=== PATIENT | male | born 1975 | race Caucasian/White ===

== ENCOUNTER 2017-09-16 18:10 | Emergency (ER) | payer OTHER ==
[2017-09-16 18:16] VITALS: TEMP 97.9
--- NOTE | 2017-09-16 18:29 | CPEKG ---
Heart Rate: 68 RR Interval: 882 P-R Interval: 132 QRSD Interval: 92 QT Interval: 412 QTC Interval: 439 P [place]: 45 QRS [place]: 66 T Wave [place]: 38 EKG Severity - NORMAL ECG - EKG Impression: SINUS RHYTHM Electronically Signed By: Farzaneh Bynum 16-Sep-2017 20:21:42
[2017-09-16] MEDS ORDERED: LIDOCAINE 2% VISCOUS 15 ML UDCUP PO ONE (18:31)
[2017-09-16] MEDS ORDERED: HYOSCYAMINE SULFATE 0.125 MG TAB PO ONE (18:31)
[2017-09-16] MEDS ORDERED: MAG HYDROX/AL HYDROX/SIMETH 30 ML UDCUP PO ONE (18:31)
--- NOTE | 2017-09-16 18:31 | EDPHY ---
H & P Time Seen by Provider: 09/16/17 18:23 HPI/ROS: CHIEF COMPLAINT: Chest pain HISTORY OF PRESENT ILLNESS: The patient is a 41 y/o male with a two week history of intermittent chest pressure. The chest pain is intermittent, usually mild/moderate and resolves with exertion. The pain occurs randomly, not necessarily associated with eating. Usually the pain dissipates after 20 minutes, but it currently has lasted 2 hours. The pain today is rated 1-2/10. Also having GI cramping recently; has schedule an appointment with GI. Increased stress recently secondary to from his . He is a smoker. He denies history of hypertension, hypercholesterolemia, diabetes, or FH of early CAD. REVIEW OF SYSTEMS: Constitutional: No fever, no chills Eyes: No visual changes ENT: No sore throat Respiratory: No cough, no shortness of breath Gastrointestinal: No nausea, no vomiting Genitourinary: No hematuria, no dysuria Musculoskeletal: No leg pain or swelling Skin: No rash Neurological: No headache, no numbness, no weakness Psychiatric: anxiety Past Medical/Surgical History: Lower GI issues Social History: Employed, lives in [place], smoker Smoking Status: Current every day smoker Physical Exam: General Appearance: Alert, pleasant Eyes: Pupils equal and round, no conjunctival pallor or injection ENT, Mouth: Mucous membranes moist Neck: Normal inspection Respiratory: Lungs are clear to auscultation Cardiovascular: Regular rate and rhythm Gastrointestinal: Abdomen is soft, mild epigastric tenderness Neurological: A&O, nonfocal, normal gait Skin: Warm and dry, no rash Extremities: Nontender, no pedal edema Psychiatric: Mood and affect normal Constitutional: Initial Vital Signs Temperature (C) 36.6 C 09/16/17 18:14 Heart Rate 80 09/16/17 18:14 Respiratory Rate 16 09/16/17 18:14 Blood Pressure 150/91 H 09/16/17 18:14 O2 Sat (%) 94 09/16/17 18:14 O2 Delivery Mode Room Air Allergies/Adverse Reactions: No Known Allergies Allergy (Verified 09/16/17 18:37) Home Medications: Medication Instructions Recorded Coq10 09/16/17 Multi-Vitamin Daily 09/16/17 Pantoprazole Sodium [Protonix 40mg 40 mg PO DAILY #20 tab 09/16/17 (*)] VITAMIN D 09/16/17 Medical Decision Making - Diagnostics EKG Interpretation: EKG interpreted by me: NSR, rate 68, no ST/T changes. Imaging Results: CXR: NAD Imaging: I viewed and interpreted images myself ED Course/Re-evaluation: The patient presents with atypical chest pain. stat EKG reveals no ischemia. Doubt ACS, given atypical sx and relief with exercise. No RF for PE and sx not typical of pneumonia or PTX. Likely GI etiology, GI cocktail given. Labs and CXR normal. Sx have resolved with GI cocktail. Abd soft, NT. Protonix prescribed. Will keep appt with GI. Follow-up instructions and return precautions given. Differential Diagnosis: includes though not limited to ACS, PE, PTX, pneumonia, dissection - Data Points Laboratory Results: Laboratory Results 09/16/17 18:29 09/16/17 18:29 Medications Given: Discontinued Medications Al Hydroxide/Mg Hydroxide (Maalox Susp) 30 ml PO ONCE ONE Stop: 09/16/17 18:32 Last Admin: 09/16/17 18:47 Dose: 30 ml Hyoscyamine Sulfate (Levsin, Hyomax-Sl) 0.25 mg PO ONCE ONE Stop: 09/16/17 18:32 Last Admin: 09/16/17 18:47 Dose: 0.25 mg Lidocaine (Lidocaine 2% Viscous) 15 ml PO ONCE ONE Stop: 09/16/17 18:32 Last Admin: 09/16/17 18:47 Dose: 15 ml Departure - Departure Disposition: Home, Routine, Self-Care Clinical Impression: GERD (gastroesophageal reflux disease) Qualifiers: Esophagitis presence: with esophagitis Qualified Code(s): K21.0 - Gastro- esophageal reflux disease with esophagitis Condition: Good Instructions: Gastroesophageal Reflux Disease (ED) Additional Instructions: 1. Take Protonix as directed. Avoid fatty and spicy foods. 2. Follow up with your primary care provider as needed. 3. Return to the ED for worsening of condition. Referrals: BASHIR NASCIMENTO [Other] - As per Instructions Prescriptions: Pantoprazole Sodium [Protonix 40mg (*)] 40 mg PO DAILY #20 tab Report Scribed for: Farzaneh Bynum Report Scribed by: Azalea Mercedes Date of Report: 09/16/17 Time of Report: 18:31 Physician Review and Approval Statement: 09/16/17 18:31 Portions of this note were transcribed by a medical assistant float. I personally performed a history, physical exam, medical decision making, and confirmed accuracy of information the transcribed note.
[2017-09-16 18:38] LABS: PLATELET COUNT 208 10^3/uL (150-400)
[2017-09-16 19:54] VITALS: BP 125/83; PULSE 65; RESP 18; O2SAT 96
== END 2017-09-16 19:53 | disposition home or self-care (01) ==
DX: K21.0 Gastro-esophageal reflux disease with esophagitis (principal); F17.200 Nicotine dependence, unspecified, uncomplicated